=== PATIENT | female | born 1995 | race Caucasian/White ===

== ENCOUNTER 2019-04-08 10:56 | Emergency (ER) | payer BC ==
[~2019-04-08] VITALS: Ht 170.2 cm; Wt 49.9 kg
[2019-04-08 11:00] VITALS: BP 96/66
--- NOTE | 2019-04-08 12:41 | PHYS DOC ---
Past History Past Medical History: No Pertinent History Past Surgical History: No Surgical History Smoking: Non-smoker Alcohol Use: None Drug Use: None Adult General Chief Complaint Chief Complaint: LOWER EXT PAIN HPI HPI 24-year-old female presents with report of pain to left calf which started last night. Patient reports recently on flight from the [facility]. Denies fever or chills. Denies shortness of breath. Denies chest pain. Reports significant family history of DVTs. Review of Systems Review of Systems Constitutional: Denies fever or chills Eyes: Denies redness or eye pain HENT: Denies nasal congestion or sore throat Respiratory: Denies cough or shortness of breath Cardiovascular: Denies pleuritic chest pain or palpitations GI: Denies abdominal pain, nausea, or vomiting : Denies dysuria or hematuria Musculoskeletal: Denies back pain; reports left calf pain Integument: Denies rash or skin lesions Neurologic: Denies headache, focal weakness or sensory changes Complete systems were reviewed and found to be within normal limits, except as documented in this note. Physical Exam Physical Exam Constitutional: Well developed, well nourished, no acute distress, non-toxic appearance HENT: Normocephalic, atraumatic, oropharynx moist Eyes: Conjunctiva normal, no discharge Neck: Normal range of motion, no tenderness, supple Cardiovascular: Heart rate normal, regular rhythm Lungs & Thorax: Bilateral breath sounds clear to auscultation, no wheezing Skin: Warm, dry, no erythema, no rash Extremities: Left calf tenderness, ROM intact, no edema Neurologic: Alert and oriented X 3, no focal deficits noted Psychologic: Affect normal, judgement normal EKG EKG [] Radiology/Procedures Radiology/Procedures PROCEDURE: VENOUS LOWER EXTREMITY LEFT Left lower extremity venous doppler ultrasound History: Left calf pain after a flight Comparison: None Findings: Multiple grayscale, color, and duplex spectral analysis sonographic images were acquired of the left lower extremity veins to evaluate for the presence of DVT. There is normal phasicity. Normal compression, color-flow, and augmentation is demonstrated from the left common femoral to the popliteal veins. There is normal color flow of the proximal greater saphenous and profunda femoris veins. There is normal color flow of segments of the calf veins. Impression: 1. There is no evidence of deep venous thrombosis from the left common femoral to the popliteal veins. Electronically signed by: Humberto Hope MD (04/08/2019 12:50 PM) [facility] Course & Med Decision Making Course & Med Decision Making Pertinent Imaging studies reviewed. (See chart for details) Patient presents with left calf pain after long flight. Significant family history of DVTs. Venous Doppler negative for acute DVT. Pain meds offered which patient declined. Patient stable for discharge with outpatient follow-up with PCP. Discussed findings and plan with patient and family, who acknowledge understanding and agreement. Dragon Disclaimer Dragon Disclaimer This electronic medical record was generated, in whole or in part, using a voice recognition dictation system. Departure Departure: Impression: Primary Impression: Pain of left calf Disposition: 01 HOME, SELF-CARE Condition: STABLE Referrals: PCP,UNKNOWN (PCP) Patient Instructions: Leg Cramps, Muscle Strain, [id number] Additional Instructions: Increase fluid hydration. Use over the counter Tylenol or Ibuprofen for pain or discomfort. ALEXA BARROS DO Apr 08, 2019 12:41
--- NOTE | 2019-04-08 12:53 | RAD ---
Left lower extremity venous doppler ultrasound History: Left calf pain after a flight Comparison: None Findings: Multiple grayscale, color, and duplex spectral analysis sonographic images were acquired of the left lower extremity veins to evaluate for the presence of DVT. There is normal phasicity. Normal compression, color-flow, and augmentation is demonstrated from the left common femoral to the popliteal veins. There is normal color flow of the proximal greater saphenous and profunda femoris veins. There is normal color flow of segments of the calf veins. Impression: 1. There is no evidence of deep venous thrombosis from the left common femoral to the popliteal veins. Electronically signed by: Humberto Hope MD (04/08/2019 12:50 PM) [facility]
== END 2019-04-08 12:50 | disposition home or self-care (01) ==
LOC: ER 10:56
DX: M79.662 Pain in left lower leg (principal)
CPT/HCPCS: 93971; 99284